=== PATIENT | male | born 1940 | race African-American/Black ===

== ENCOUNTER 2017-02-05 12:38 | Emergency (ER) | payer OTHER ==
[2017-02-05 14:32] VITALS: BP 166/82
== END 2017-02-05 15:01 | disposition home or self-care (01) ==
LOC: ED 12:38
DX: S01.01XA Laceration without foreign body of scalp, initial encounter (principal); I10 Essential (primary) hypertension; E11.9 Type 2 diabetes mellitus without complications; Z79.899 Other long term (current) drug therapy; W17.89XA Other fall from one level to another, initial encounter; Y93.89 Activity, other specified; Y92.89 Other specified places as the place of occurrence of the external cause; Y99.8 Other external cause status

== ENCOUNTER 2017-08-18 12:58 | Inpatient (IN) | payer OTHER ==
[~2017-08-18] VITALS: Ht 170.2 cm; Wt 84.4 kg
[2017-08-18 14:11] LABS: BASOPHIL % 0 % (0-2); PLATELET COUNT 115 x10^3mcL (130-400); RED CELL DISTRIBUTION WIDTH 17.9 % (11.5-14.5)
[2017-08-18 14:32] LABS: ALBUMIN 3.8 g/dL (3.4-5.0); ALKALINE PHOSPHATASE 68 U/L (46-116); ALT/SGPT 10 U/L (16-63); AST/SGOT 20 U/L (15-37); BILIRUBIN TOTAL 0.37 mg/dL (0.20-1.00); CALCIUM 9.1 mg/dL (8.5-10.1); CARBON DIOXIDE 25.9 mmol/L (21-32); CHLORIDE SERUM 99 mmol/L (98-107); GLUCOSE SERUM 363 mg/dL (74-106); POTASSIUM SERUM 4.2 mmol/L (3.5-5.1); SODIUM SERUM 139 mmol/L (136-145); TOTAL PROTEIN, SERUM 7.7 g/dL (6.4-8.2)
[2017-08-18 14:42] LABS: CREATININE SERUM 7.2 mg/dL (0.7-1.3)
[2017-08-18] MEDS ORDERED: HUMALOG100 UNIT/1 SQ (15:33)
[2017-08-18] MEDS ORDERED: LANTUS SOLOS100 U/M1 SQ (15:37)
[2017-08-18] MEDS ORDERED: LASIX40 MG PO (15:37)
[2017-08-18] MEDS ORDERED: CARDURA2 MG PO (15:38)
[2017-08-18] MEDS ORDERED: PLA75 PO (15:39)
[2017-08-18] MEDS ORDERED: NOR5 PO (15:39)
[2017-08-18 15:40] LABS: microscopic required? YES; urine erythrocyte 1+ (NEGATIVE)
[2017-08-18] MEDS ORDERED: FLOMAX0.4 MG PO (16:16)
[2017-08-18] MEDS ORDERED: COLACE100 MG PO (16:17)
[2017-08-18] MEDS ORDERED: CALCITRIOL0.25 MCG PO (16:18)
[2017-08-18] MEDS ORDERED: XALATAN2.5 ML OU (16:18)
[2017-08-18] MEDS ORDERED: NEU300 PO ×2 (16:18→16:19)
[2017-08-18] MEDS ORDERED: BUM1 PO (16:24)
[2017-08-18] MEDS ORDERED: COREG12.5 MG PO (16:24)
[2017-08-18] MEDS ORDERED: MINOXIDIL2.5 MG PO (16:25)
[2017-08-18] MEDS ORDERED: Z5 PO (16:26)
[2017-08-18] MEDS ORDERED: KAPVAY0.1 MG PO (16:31)
[2017-08-18] MEDS ORDERED: ATA25 PO (16:32)
[2017-08-18] MEDS ORDERED: BENAZEPRIL HYDR40 M1 PO (16:33)
[2017-08-18 17:57] VITALS: BP 178/73
[2017-08-18 18:17] LABS: T3 TOTAL 0.62 ng/mL
[2017-08-18 18:18] LABS: MAGNESIUM 1.8 mg/dL (1.8-2.4); PHOSPHOROUS 5.4 mg/dL (2.5-4.9)
[2017-08-18 18:20] LABS: CHOLESTEROL/HDL RATIO 8.5
[2017-08-18 18:25] LABS: FREE T4 0.91 ng/dL (0.76-1.46); FREE THYROXINE INDEX 2.3 ug/dL (1.4-4.5); T4(THYROXINE) 7.2 ug/dL (4.7-13.3)
[2017-08-18 20:19] LABS: RED BLOOD CELLS 2.98 M/mm3 (4.52-5.90)
[2017-08-18 20:30] LABS: IRON 25 ug/dL (65-170); TOTAL IRON BINDING CAPACITY 226 ug/dL (250-450)
[2017-08-18 20:37] LABS: AMPHETAMINE QUAL UR NONE DETECTED (NEG <=1000)
[2017-08-18 22:04] VITALS: BP 157/66
[2017-08-19 05:20] VITALS: BP 135/82
[2017-08-19 07:22] LABS: BASOPHIL % 0.6 % (0-2); PLATELET COUNT 112 x10^3mcL (130-400)
[2017-08-19 07:33] LABS: CALCIUM 8.8 mg/dL (8.5-10.1); CARBON DIOXIDE 26.4 mmol/L (21-32); CHLORIDE SERUM 104 mmol/L (98-107); GLUCOSE SERUM 77 mg/dL (74-106); MAGNESIUM 1.8 mg/dL (1.8-2.4); PHOSPHOROUS 5.3 mg/dL (2.5-4.9); SODIUM SERUM 144 mmol/L (136-145)
[2017-08-19 07:39] LABS: CREATININE SERUM 6.9 mg/dL (0.7-1.3)
[2017-08-19 12:06] VITALS: BP 158/68
[2017-08-19 16:20] VITALS: BP 119/51
[2017-08-19 21:08] VITALS: BP 123/57
[2017-08-20 05:16] VITALS: BP 157/75
[2017-08-20 06:37] LABS: CALCIUM 9.3 mg/dL (8.5-10.1); CARBON DIOXIDE 26.7 mmol/L (21-32); CHLORIDE SERUM 102 mmol/L (98-107); GLUCOSE SERUM 217 mg/dL (74-106); MAGNESIUM 1.7 mg/dL (1.8-2.4); PHOSPHOROUS 5.8 mg/dL (2.5-4.9); SODIUM SERUM 141 mmol/L (136-145)
[2017-08-20 06:41] LABS: CREATININE SERUM 6.6 mg/dL (0.7-1.3)
[2017-08-20 06:58] LABS: BASOPHIL % 0.8 % (0-2)
[2017-08-20 06:59] LABS: PLATELET COUNT 96 x10^3mcL (130-400); RED CELL DISTRIBUTION WIDTH 18.1 % (11.5-14.5)
[2017-08-20 08:00] VITALS: BP 164/73
[2017-08-20 12:08] VITALS: BP 109/57
[2017-08-20 14:46] VITALS: BP 122/63
[2017-08-20] MEDS ORDERED: PROCRIT20000 UNIT SQ (17:05)
[2017-08-20 17:40] VITALS: BP 144/73
[2017-08-20 21:12] VITALS: BP 115/82
[2017-08-21 04:57] VITALS: BP 110/69
[2017-08-21 07:16] LABS: CALCIUM 9.6 mg/dL (8.5-10.1); CARBON DIOXIDE 29.4 mmol/L (21-32); CHLORIDE SERUM 103 mmol/L (98-107); GLUCOSE SERUM 145 mg/dL (74-106); PHOSPHOROUS 4.6 mg/dL (2.5-4.9); POTASSIUM SERUM 3.8 mmol/L (3.5-5.1); SODIUM SERUM 145 mmol/L (136-145)
[2017-08-21 07:20] LABS: CREATININE SERUM 5.4 mg/dL (0.7-1.3)
[2017-08-21 08:10] VITALS: BP 149/58
[2017-08-21 08:18] LABS: BASOPHIL % 0.5 % (0-2); PLATELET COUNT 115 x10^3mcL (130-400); RED CELL DISTRIBUTION WIDTH 17.6 % (11.5-14.5)
[2017-08-21 13:20] VITALS: BP 167/73
[2017-08-21 16:11] VITALS: BP 143/62
[2017-08-21 21:56] VITALS: BP 124/59
[2017-08-22 06:17] VITALS: BP 156/63
[2017-08-22 07:20] LABS: PLATELET COUNT 118 x10^3mcL (130-400); RED CELL DISTRIBUTION WIDTH 17.6 % (11.5-14.5)
[2017-08-22 07:26] LABS: CALCIUM 9.6 mg/dL (8.5-10.1); CHLORIDE SERUM 104 mmol/L (98-107); GLUCOSE SERUM 90 mg/dL (74-106); POTASSIUM SERUM 3.6 mmol/L (3.5-5.1); SODIUM SERUM 145 mmol/L (136-145)
[2017-08-22 07:32] LABS: CREATININE SERUM 4.4 mg/dL (0.7-1.3)
[2017-08-22 09:08] VITALS: BP 168/71
[2017-08-22 10:48] LABS: ATYPICAL LYMPH 6 %; BAND NEUTROPHIL 0 % (0-10); BASOPHIL 0 % (0-2); MONOCYTE 6 % (0-7); SEGMENTED NEUTROPHILS 55 % (37-75)
[2017-08-22 10:49] LABS: rbc morphology (normal/abnorm) ABNORMAL (NORMAL)
[2017-08-22 10:50] LABS: PLATELET MORPHOLOGY PLATELETS DECREASED
[2017-08-22] MEDS ORDERED: LIPI10 PO (11:09)
[2017-08-22 12:55] VITALS: BP 142/97
[2017-08-22] MEDS ORDERED: CARDURA2 MG PO (15:26)
[2017-08-22 17:50] VITALS: BP 161/72
[2017-08-22 18:16] VITALS: BP 141/63
[2017-08-22 22:01] VITALS: BP 144/63
[2017-08-23 05:43] VITALS: BP 150/66
[2017-08-23 07:31] LABS: CALCIUM 9.7 mg/dL (8.5-10.1); CARBON DIOXIDE 31.6 mmol/L (21-32); CHLORIDE SERUM 103 mmol/L (98-107); GLUCOSE SERUM 176 mg/dL (74-106); POTASSIUM SERUM 3.6 mmol/L (3.5-5.1); SODIUM SERUM 145 mmol/L (136-145)
[2017-08-23 07:32] LABS: BASOPHIL % 0.4 % (0-2)
[2017-08-23 07:37] LABS: CREATININE SERUM 4.8 mg/dL (0.7-1.3)
[2017-08-23 07:51] LABS: PLATELET COUNT 114 x10^3mcL (130-400); RED CELL DISTRIBUTION WIDTH 17.5 % (11.5-14.5)
[2017-08-23 08:33] VITALS: BP 143/59
[2017-08-23 10:18] VITALS: Ht 170.2 cm; Wt 84.4 kg
[2017-08-23 18:00] VITALS: BP 135/57
[2017-08-23 20:38] VITALS: BP 143/59
[2017-08-24 04:53] VITALS: BP 110/47
[2017-08-24 07:44] LABS: BASOPHIL % 0.4 % (0-2)
[2017-08-24 07:51] LABS: PLATELET COUNT 122 x10^3mcL (130-400); RED CELL DISTRIBUTION WIDTH 17.8 % (11.5-14.5)
[2017-08-24 07:54] LABS: rbc morphology (normal/abnorm) ABNORMAL (NORMAL)
[2017-08-24 08:05] LABS: CALCIUM 9.2 mg/dL (8.5-10.1); CHLORIDE SERUM 102 mmol/L (98-107); GLUCOSE SERUM 128 mg/dL (74-106); MAGNESIUM 1.5 mg/dL (1.8-2.4); PHOSPHOROUS 3.6 mg/dL (2.5-4.9); POTASSIUM SERUM 3.4 mmol/L (3.5-5.1); SODIUM SERUM 143 mmol/L (136-145)
[2017-08-24 09:53] VITALS: BP 126/59
[2017-08-24 11:40] LABS: ALKALINE PHOSPHATASE 57 U/L (46-116); ALT/SGPT 8 U/L (16-63); AST/SGOT 12 U/L (15-37); BILIRUBIN TOTAL 0.41 mg/dL (0.20-1.00); CALCIUM 9.4 mg/dL (8.5-10.1); CARBON DIOXIDE 31.7 mmol/L (21-32); CHLORIDE SERUM 101 mmol/L (98-107); GLUCOSE SERUM 212 mg/dL (74-106); POTASSIUM SERUM 3.5 mmol/L (3.5-5.1); SODIUM SERUM 142 mmol/L (136-145); TOTAL PROTEIN, SERUM 6.5 g/dL (6.4-8.2)
[2017-08-24 13:51] LABS: BASOPHIL % 0.4 % (0-2)
[2017-08-24 14:10] LABS: PLATELET COUNT 115 x10^3mcL (130-400); RED CELL DISTRIBUTION WIDTH 17.3 % (11.5-14.5)
[2017-08-24 14:31] LABS: rbc morphology (normal/abnorm) ABNORMAL (NORMAL)
[2017-08-24] MEDS ORDERED: FERROUS SULFAT325 M2 PO (17:24)
[2017-08-24] MEDS ORDERED: PHARMASSURE VI500 MG PO (17:25)
[2017-08-24] MEDS ORDERED: MAGNESIUM OXID400 MG PO (19:30)
[2017-08-24 20:34] VITALS: BP 133/50
[2017-08-24 21:41] LABS: BASOPHIL % 0.4 % (0-2)
[2017-08-24 21:42] LABS: PLATELET COUNT 127 x10^3mcL (130-400); RED CELL DISTRIBUTION WIDTH 16.9 % (11.5-14.5)
[2017-08-24 22:13] VITALS: BP 118/64
== END 2017-08-24 23:26 | DRG 291 ==
LOC: ED 12:58 → DU 15:03 → MU 15:03 → DU 17:13 → MU 08-21 08:14
PROVIDERS: Emergency Medicine; Family Medicine; Family Medicine Sports Medicine; Surgery
PROC: 5A1D70Z Performance of Urinary Filtration, Intermittent, Less than 6 Hours Per Day (ICD-10-PCS; 2017-08-20)
PROC: 02HV33Z Insertion of Infusion Device into Superior Vena Cava, Percutaneous Approach (ICD-10-PCS; principal; 2017-08-20 13:00)
PROC: 5A1D70Z Performance of Urinary Filtration, Intermittent, Less than 6 Hours Per Day (ICD-10-PCS; 2017-08-21)
PROC: 5A1D70Z Performance of Urinary Filtration, Intermittent, Less than 6 Hours Per Day (ICD-10-PCS; 2017-08-22)
PROC: 30233N1 Transfusion of Nonautologous Red Blood Cells into Peripheral Vein, Percutaneous Approach (ICD-10-PCS; 2017-08-24)
DX: I13.2 Hypertensive heart and chronic kidney disease with heart failure and with stage 5 chronic kidney disease, or end stage renal disease (principal); N18.6 End stage renal disease; I50.43 Acute on chronic combined systolic (congestive) and diastolic (congestive) heart failure; J96.01 Acute respiratory failure with hypoxia; N17.0 Acute kidney failure with tubular necrosis; D68.69 Other thrombophilia; E44.0 Moderate protein-calorie malnutrition; I16.0 Hypertensive urgency; E11.65 Type 2 diabetes mellitus with hyperglycemia; E11.21 Type 2 diabetes mellitus with diabetic nephropathy; E11.42 Type 2 diabetes mellitus with diabetic polyneuropathy; E11.59 Type 2 diabetes mellitus with other circulatory complications; E83.42 Hypomagnesemia; E83.39 Other disorders of phosphorus metabolism; R80.9 Proteinuria, unspecified; D69.6 Thrombocytopenia, unspecified; D63.1 Anemia in chronic kidney disease; E03.9 Hypothyroidism, unspecified; E78.5 Hyperlipidemia, unspecified; Z68.32 Body mass index [BMI] 32.0-32.9, adult; Z86.73 Personal history of transient ischemic attack (TIA), and cerebral infarction without residual deficits; Z79.02 Long term (current) use of antithrombotics/antiplatelets; Z79.4 Long term (current) use of insulin; Z66 Do not resuscitate
CPT/HCPCS: 83880; 84439; 86580; 87804; 94150; 97110-GP; 97116-GP; 97530-GP; A4301; J0690; J0885-EC; J1644; J1815; J1940; J1956; J2001; J2150; J2704; J3010; J3475; J3490; J7030; J7050; J7620; P9016; Q0092; Q0163